=== PATIENT | female | born 1960 | race Caucasian/White ===

== ENCOUNTER → 2017-04-02 | Outpatient (CLI) | payer BC ==
[~2017-04-02] MED LIST: CELE20TA OR; HYDR25TA6 OR; IBUP600T OR; SEASTAB OR; VICO5TAB OR; VITAMIN B12; [UNRECOGNIZED DRUG - OTHER] OR
--- NOTE | 2017-04-02 16:11 | REP ---
Clinical: Lower back pain. Technique: AP, lateral, bilateral oblique and coned-down views of the lumbosacral spine. Comparison: 06/19/2015. Findings: Alignment and lordosis maintained. No acute fracture / compression injury or subluxation. Mild/early moderate multilevel degenerative changes include subtle anterior spurring, endplate sclerosis and hypertrophic facet changes similar to prior examination. No obvious spondylolysis or spondylolisthesis. Impression: 1. Mild to early moderate multilevel degenerative changes similar to prior examination. 2. No acute fracture / compression injury or subluxation. Signed by Antwon Edward MD 04/02/2017 04:02 P
== END ==
LOC: M RAD 15:27
PROVIDERS: ATTEND Nurse Practitioner Adult Health
DX: M54.5 Low back pain (principal)

== ENCOUNTER → 2017-04-10 | Outpatient (CLI) | payer BC ==
[2017-04-10 13:53] LABS: MEAN CORPUSCULAR HEMOGLOBIN 31.3 pg (27.0-33.0); MEAN CORPUSCULAR VOLUME 91.9 fl (80.0-96.0); WHITE BLOOD COUNT 4.8 K/mm3 (4.0-10.0)
[2017-04-10 14:14] LABS: VITAMIN B12 LEVEL 335 PG/ML (247-911)
[2017-04-10 14:22] LABS: ALBUMIN 3.6 GM/DL (3.2-5.2); ALBUMIN/GLOBULIN RATIO 1.16 (1.00-1.93); ALKALINE PHOSPHATASE 84 U/L (45-117); ALT/SGPT 22 U/L (12-78); ANION GAP 8 MEQ/L (8-16); AST/SGOT 14 U/L (15-37); BILIRUBIN,TOTAL 0.3 MG/DL (0.2-1.0); BLOOD UREA NITROGEN 10 MG/DL (7-18); CALCIUM LEVEL 8.6 MG/DL (8.5-10.1); CARBON DIOXIDE LEVEL 28 MEQ/L (21-32); CHLORIDE LEVEL 107 MEQ/L (98-107); CHOLESTEROL LEVEL 209 MG/DL (<200); CREATININE FOR GFR 0.69 MG/DL (0.55-1.02); GLOMERULAR FILTRATION RATE > 60.0 (>51); GLUCOSE, FASTING 86 MG/DL (70-105); POTASSIUM SERUM 4.9 MEQ/L (3.5-5.1); SODIUM LEVEL 143 MEQ/L (136-145); TOTAL PROTEIN 6.7 GM/DL (6.4-8.2); TRIGLYCERIDES LEVEL 75 MG/DL (<150)
== END ==
LOC: M SMT 07:59
PROVIDERS: ATTEND Nurse Practitioner Adult Health
DX: Z00.00 Encounter for general adult medical examination without abnormal findings (principal); E55.9 Vitamin D deficiency, unspecified

== ENCOUNTER → 2017-05-09 | Outpatient (CLI) | payer BC ==
[~2017-05-09] VITALS: Ht 152.4 cm; Wt 65.8 kg
[~2017-05-09] MED LIST changes: +HYDR12.55 PO; +NS 1,000 ML IV SCH; +OMEP40CA2 PO; +PROPOFOL 200 MG/20 ML VIAL As Ordered ONE; +VITA-176 PO; +VITATAB11 PO
--- NOTE | 2017-05-09 11:29 | ROOR ---
Patient Name: Karon Trimble Procedure Date: 05/09/2017 11:10 AM Date of : 1960 Age: 56 Room: [facility] Gender: Female Note Status: Finalized Procedure: Colonoscopy Indications: High risk colon cancer surveillance: Personal history of colonic polyps Providers: Lexx Jaeger Jr, MD Referring MD: Michael Fitzgerald MD Requesting Provider: Medicines: Propofol per Anesthesia Complications: No immediate complications. Procedure: Pre-Anesthesia Assessment: - Prior to the procedure, a History and Physical was performed, and patient medications and allergies were reviewed. The patient is competent. The risks and benefits of the procedure and the sedation options and risks were discussed with the patient. All questions were answered and informed consent was obtained. Patient identification and proposed procedure were verified by the physician and the nurse in the pre-procedure area and in the procedure room. Mental Status Examination: alert and oriented. Airway Examination: normal oropharyngeal airway and neck mobility. Respiratory Examination: clear to auscultation. CV Examination: normal. ASA Grade Assessment: II - A patient with mild systemic disease. After reviewing the risks and benefits, the patient was deemed in satisfactory condition to undergo the procedure. The anesthesia plan was to use moderate sedation / analgesia (conscious sedation). Immediately prior to administration of medications, the patient was re-assessed for adequacy to receive sedatives. The heart rate, respiratory rate, oxygen saturations, blood pressure, adequacy of pulmonary ventilation, and response to care were monitored throughout the procedure. The physical status of the patient was re-assessed after the procedure. The Colonoscope was introduced through the anus and advanced to the cecum, identified by appendiceal orifice and ileocecal valve. The patient tolerated the procedure well. The quality of the bowel preparation was adequate and good. Findings: The perianal and digital rectal examinations were normal. Pertinent negatives include normal sphincter tone, no palpable rectal lesions and no anal lesion or abnormality was detected. A diminutive polyp was found in the ascending colon. The polyp was removed with a hot snare. Resection and retrieval were complete. Impression: - One diminutive polyp in the ascending colon, removed with a hot snare. Resected and retrieved. Recommendation: - Repeat colonoscopy in 5 years for surveillance. Lexx Jaeger MD Lexx Jaeger Jr, MD 05/09/2017 11:29:23 AM This report has been signed electronically. Number of Addenda: 0 Note Initiated On: 05/09/2017 11:10 AM Estimated Blood Loss: Estimated blood loss: none.
[2017-05-09 11:45] VITALS: BP 153/79
== END | disposition home or self-care (01) ==
LOC: M OPP 10:12
PROVIDERS: ATTEND Surgery
DX: Z12.11 Encounter for screening for malignant neoplasm of colon (principal); D12.2 Benign neoplasm of ascending colon; Z86.010 Personal history of colon polyps; I10 Essential (primary) hypertension; R12 Heartburn; F32.9 Major depressive disorder, single episode, unspecified; F41.9 Anxiety disorder, unspecified; Z91.040 Latex allergy status; Z91.013 Allergy to seafood; Z79.899 Other long term (current) drug therapy

== ENCOUNTER → 2017-10-01 | Outpatient (CLI) | payer BC ==
[~2017-10-01] MED LIST changes: -NS 1,000 ML IV SCH; -PROPOFOL 200 MG/20 ML VIAL As Ordered ONE
--- NOTE | 2017-10-01 17:25 | REPMRS ---
Patient History The patient states she had a clinical breast exam in March 2017.Patient is postmenopausal. Family history of prostate cancer in paternal grandfather at age 7, breast cancer in maternal aunt at age 50, breast cancer in maternal cousin at age 30, and breast cancer in maternal cousin. Digital Mammo Screening Bilat: October 01, 2017 - Exam #: [id number] Bilateral CC and MLO view(s) were taken. Technologist: Nathaly Ahmadi, Technologist Prior study comparison: September 17, 2016, bilateral digital mammo screening bilat performed at [facility]. September 15, 2015, bilateral digital mammo screening bilat performed at [facility]. FINDINGS: There are scattered fibroglandular densities. There has been no change in the appearance of the mammogram from the prior studies. There is a mild amount of residual fibroglandular tissue which is fairly symmetric. There is no interval development of dominant mass, architectural distortion, or clustered microcalcification suggestive of malignancy. ASSESSMENT: BI-RADS/ACR category 1 mammogram. Negative. Recommendation Routine screening mammogram in 1 year (for women over age 40). This mammogram was interpreted with the aid of an FDA-approved computer-aided dectection system. Electronically Signed By: Rodrigo Barraza MD 10/01/17 [id number]
== END ==
LOC: M RAD 16:17
PROVIDERS: ATTEND Nurse Practitioner Adult Health
DX: Z12.31 Encounter for screening mammogram for malignant neoplasm of breast (principal)

== ENCOUNTER 2017-10-22 06:43 | Emergency (ER) | payer BC ==
[~2017-10-22] VITALS: Ht 152.4 cm; Wt 67.5 kg
[2017-10-22 06:43] VITALS: BP 143/98
[2017-10-22] MEDS ORDERED: CHERSYP3 PO (07:20)
[2017-10-22] MEDS ORDERED: CEFD1CAP8 PO (07:20)
== END 2017-10-22 07:27 | disposition home or self-care (01) ==
LOC: M ED 06:43
DX: J01.00 Acute maxillary sinusitis, unspecified (principal); R05 Cough; E53.8 Deficiency of other specified B group vitamins; Z79.899 Other long term (current) drug therapy; Z91.040 Latex allergy status; Z91.013 Allergy to seafood

== ENCOUNTER → 2017-10-28 | Outpatient (CLI) | payer BC ==
[~2017-10-28] MED LIST changes: +CEFD1CAP8 PO; +CHERSYP3 PO
--- NOTE | 2017-10-28 13:47 | REP ---
CHEST X-RAY: Two views. HISTORY: Acute bronchitis. Comparison chest x-ray November 05, 2009. FINDINGS: The lungs are symmetrically somewhat hyperinflated but clear. Pleural angles are sharp. Heart size is normal. Pulmonary vasculature is not increased. No significant bony abnormality is seen. IMPRESSION: Mild hyperinflation. Otherwise no acute disease. Signed by Bruce Allen MD 10/28/2017 03:03 P
== END ==
LOC: M SMT 12:09
PROVIDERS: ATTEND Nurse Practitioner Adult Health
DX: J20.9 Acute bronchitis, unspecified (principal)

== ENCOUNTER → 2018-04-03 | Outpatient (REF) | payer BC ==
[2018-04-03 11:58] LABS: HEMATOCRIT 43.4 % (36.0-47.0); HEMOGLOBIN 14.5 g/dl (12.0-15.5); MEAN CORPUSCULAR HEMOGLOBIN 30.5 pg (27.0-33.0); MEAN CORPUSCULAR HGB CONC 33.4 g/dl (32.0-36.5); MEAN CORPUSCULAR VOLUME 91.2 fl (80.0-96.0); PLATELET COUNT, AUTOMATED 287 10^3/uL (150-450); RED BLOOD COUNT 4.76 10^6/uL (4.00-5.40); RED CELL DISTRIBUTION WIDTH 13.3 % (11.5-14.5); WHITE BLOOD COUNT 5.1 10^3/uL (4.0-10.0)
[2018-04-03 12:21] LABS: TOTAL 25(OH) VITAMIN D 25.3 NG/ML (30.0-100.0); VITAMIN B12 LEVEL 286 PG/ML (247-911)
[2018-04-03 12:27] LABS: ALBUMIN 3.8 GM/DL (3.2-5.2); ALBUMIN/GLOBULIN RATIO 1.31 (1.00-1.93); ALKALINE PHOSPHATASE 83 U/L (45-117); ALT/SGPT 19 U/L (12-78); ANION GAP 5 MEQ/L (8-16); AST/SGOT 11 U/L (7-37); BILIRUBIN,TOTAL 0.5 MG/DL (0.2-1.0); BLOOD UREA NITROGEN 11 MG/DL (7-18); CALCIUM LEVEL 8.6 MG/DL (8.5-10.1); CARBON DIOXIDE LEVEL 27 MEQ/L (21-32); CHLORIDE LEVEL 111 MEQ/L (98-107); CHOLESTEROL LEVEL 215 MG/DL (<200); CHOLESTEROL RISK RATIO 2.986 (<5); CREATININE FOR GFR 0.67 MG/DL (0.55-1.30); GLOMERULAR FILTRATION RATE > 60.0 (>51); GLUCOSE, FASTING 86 MG/DL (70-100); HDL CHOLESTEROL 72 MG/DL (>40); LDL CHOLESTEROL 119.2 MG/DL (<100); NON-HDL-C 143 MG/DL; POTASSIUM SERUM 4.6 MEQ/L (3.5-5.1); SODIUM LEVEL 143 MEQ/L (136-145); TOTAL PROTEIN 6.7 GM/DL (6.4-8.2); TRIGLYCERIDES LEVEL 119 MG/DL (<150)
[2018-04-05 00:07] LABS: Lyme Disease IgG/IgM Antibodie <0.91 ISR (0.00-0.90); Lyme Disease IgM Ab Quantitati <0.80 index (0.00-0.79)
== END ==
LOC: M SFHCPLAZ 08:25
DX: Z00.00 Encounter for general adult medical examination without abnormal findings (principal); E55.9 Vitamin D deficiency, unspecified; E53.8 Deficiency of other specified B group vitamins; E78.00 Pure hypercholesterolemia, unspecified; R53.83 Other fatigue
CPT/HCPCS: 84443

== ENCOUNTER → 2018-10-22 | Outpatient (CLI) | payer BC | LOC: M RAD 15:23 | DX: Z12.31 Encounter for screening mammogram for malignant neoplasm of breast (principal) | CPT/HCPCS: 77067 ==

== ENCOUNTER → 2019-01-12 | Outpatient (REF) | payer BC | LOC: M SFHCLERA 11:12 | PROVIDERS: ATTEND Dermatology | DX: D23.10 Other benign neoplasm of skin of unspecified eyelid, including canthus (principal) ==

== ENCOUNTER → 2019-04-02 | Outpatient (REF) | payer BC ==
[2019-04-02 12:55] LABS: HEMATOCRIT 43.9 % (36.0-47.0); HEMOGLOBIN 14.6 g/dl (12.0-15.5); MEAN CORPUSCULAR HEMOGLOBIN 29.9 pg (27.0-33.0); MEAN CORPUSCULAR HGB CONC 33.3 g/dl (32.0-36.5); MEAN CORPUSCULAR VOLUME 89.8 fl (80.0-96.0); PLATELET COUNT, AUTOMATED 337 10^3/uL (150-450); RED BLOOD COUNT 4.89 10^6/uL (4.00-5.40); WHITE BLOOD COUNT 5.3 10^3/uL (4.0-10.0)
[2019-04-02 13:29] LABS: ALBUMIN 3.8 GM/DL (3.2-5.2); ALT/SGPT 20 U/L (12-78); BILIRUBIN,TOTAL 0.4 MG/DL (0.2-1.0); BLOOD UREA NITROGEN 10 MG/DL (7-18); CALCIUM LEVEL 8.6 MG/DL (8.5-10.1); CARBON DIOXIDE LEVEL 26 MEQ/L (21-32); CHLORIDE LEVEL 104 MEQ/L (98-107); CHOLESTEROL LEVEL 229 MG/DL (<200); CHOLESTEROL RISK RATIO 3.225 (<5); CREATININE FOR GFR 0.68 MG/DL (0.55-1.30); GLOMERULAR FILTRATION RATE > 60.0 (>51); GLUCOSE, FASTING 91 MG/DL (70-100); HDL CHOLESTEROL 71 MG/DL (>40); LDL CHOLESTEROL 130 MG/DL (<100); NON-HDL-C 158 MG/DL; POTASSIUM SERUM 4.4 MEQ/L (3.5-5.1); SODIUM LEVEL 138 MEQ/L (136-145); TOTAL 25(OH) VITAMIN D 26.9 NG/ML (30.0-100.0); TOTAL PROTEIN 7.1 GM/DL (6.4-8.2); TRIGLYCERIDES LEVEL 139 MG/DL (<150)
== END ==
LOC: M SFHCPLAZ 08:36
PROVIDERS: ATTEND Nurse Practitioner Adult Health
DX: Z00.00 Encounter for general adult medical examination without abnormal findings (principal); E55.9 Vitamin D deficiency, unspecified; E78.00 Pure hypercholesterolemia, unspecified

== ENCOUNTER 2019-08-16 16:57 | Emergency (ER) | payer BC ==
[~2019-08-16] VITALS: Ht 152.4 cm; Wt 69.8 kg
[2019-08-16 16:57] VITALS: BP 146/93
[2019-08-16] MEDS ORDERED: MORPHINE 4 MG/ML 1ML VIAL/SYRINGE (J2270) IV ONE (18:15)
[2019-08-16] MEDS ORDERED: NS 1,000 ML IV ONE (18:15)
[2019-08-16 18:47] LABS: BASO % 0.4 % (0.0-1.0); EOS # 0.1 10^3/uL (0.0-0.5); EOS % 1.4 % (0.0-3.0); HEMATOCRIT 38.2 % (36.0-47.0); HEMOGLOBIN 13.1 g/dl (12.0-15.5); LYMPH # 1.4 10^3/uL (1.5-5.0); LYMPH % 15.1 % (24.0-44.0); MEAN CORPUSCULAR HEMOGLOBIN 31.1 pg (27.0-33.0); MEAN CORPUSCULAR HGB CONC 34.3 g/dl (32.0-36.5); MEAN CORPUSCULAR VOLUME 90.7 fl (80.0-96.0); MONO % 10.7 % (0.0-5.0); NEUTROPHILS # 6.5 10^3/uL (1.5-8.5); PLATELET COUNT, AUTOMATED 275 10^3/uL (150-450); RED BLOOD COUNT 4.21 10^6/uL (4.00-5.40); WHITE BLOOD COUNT 9.1 10^3/uL (4.0-10.0)
[2019-08-16] MEDS ORDERED: ISOVUE-370 76% 100ML VIAL (Q9967) As Ordered ONE (18:49)
[2019-08-16] MEDS ORDERED: ONDANSETRON 4MG/2ML VIAL (J2405) IV ONE (19:15)
[2019-08-16 19:37] LABS: APPEARANCE, URINE CLEAR (CLEAR); BACTERIA, URINE AUTO 2+ (NEGATIVE); BILIRUBIN, URINE AUTO NEGATIVE (NEGATIVE); BLOOD, URINE BLOOD 2+ (NEGATIVE); COLOR, URINE YELLOW (YELLOW); GLUCOSE, URINE (UA) AUTO NEGATIVE (NEGATIVE); KETONE, URINE AUTO 1+ mg/dL (NEGATIVE); LEUKOCYTE ESTERASE, URINE AUTO NEGATIVE (NEGATIVE); NITRITE, URINE AUTO NEGATIVE (NEGATIVE); PROTEIN, URINE AUTO NEGATIVE (NEGATIVE); RBC, URINE AUTO 9 /HPF (0-3); SPECIFIC GRAVITY URINE AUTO 1.009 (1.002-1.035); SQUAMOUS EPITHELIAL CELL UR AU 0 /HPF (0-6); WBC, URINE AUTO 1 /HPF (0-3)
--- NOTE | 2019-08-16 20:04 | REPVR ---
PROCEDURE INFORMATION: Exam: CT Chest With Contrast Exam date and time: 08/16/2019 6:52 PM Clinical history: 58 years old, female; Injury or trauma; Fall; Initial encounter; Blunt trauma (contusions or hematomas); Additional info: Right chest trauma TECHNIQUE: Imaging protocol: Computed tomography of the chest with intravenous contrast. Radiation optimization: All CT scans at this facility use at least one of these dose optimization techniques: automated exposure control; mA and/or kV adjustment per patient size (includes targeted exams where dose is matched to clinical indication); or iterative reconstruction. Contrast material: ISOVUE 370; Contrast volume: 100 ml; Contrast route: IV; COMPARISON: CR Ribs uni W-PA CHEST ONLY RIGHT 08/16/2019 5:24 PM FINDINGS: Lungs: Mild bibasilar fibro-atelectatic change, greatest in the right lower lobe. Pleural space: Minimal right pleural effusion with a Hounsfield measurement of 20. Heart: Unremarkable. No cardiomegaly. No pericardial effusion. Mediastinum: Induration of anterior mediastinal fat which is nonspecific in a patient of this age. Pulmonary arteries: The main pulmonary artery measures 24 mm. Aorta: The ascending thoracic aorta measures 29 mm. Lymph nodes: Unremarkable. No enlarged lymph nodes. Liver: The liver attenuation is 97 Hounsfield units and the spleen is 136 Hounsfield units. Adrenals: Right adrenal mass measuring 4.2 x 2.7 x 3.3 cm with a Hounsfield measurement of 47 with slightly indistinct margination. Bones/joints: Fractures of the right 8th-10th ribs posteriorly. Soft tissues: Slight subcutaneous edema over the posterior right back over the area of rib fractures. IMPRESSION: 1. Minimal right pleural effusion. 2. Mild bibasilar fibro-atelectatic change, greatest in the right lower lobe. 3. Fractures of the right 8th-10th ribs posteriorly. No pneumothorax. There is slight overlying subcutaneous edema consistent with point of impact. 4. Induration of anterior mediastinal fat which is nonspecific in a patient of this age. 5. Right adrenal mass with slightly indistinct margination measuring 4.2 x 2.7 x 3.3 cm which is new since 12/08/2012. If patient has no cancer history, consider follow-up adrenal CT or resection. If patient has a history of cancer, consider biopsy or PET/CT for patients with cancer history. (Flory Holden, ACR White Paper, 2017). Electronically signed by: Tez Flores On 08/16/2019 20:04:10 PM
--- NOTE | 2019-08-16 20:13 | REPVR ---
PROCEDURE INFORMATION: Exam: CT Abdomen and pelvis with contrast Exam date and time: 08/16/2019 6:52 PM Clinical history: 58 years old, female; Injury or trauma; Fall; Initial encounter; Blunt; Ruq; Additional info: Right chest trauma TECHNIQUE: Imaging protocol: Computed tomography of the abdomen and pelvis with intravenous contrast. Radiation optimization: All CT scans at this facility use at least one of these dose optimization techniques: automated exposure control; mA and/or kV adjustment per patient size (includes targeted exams where dose is matched to clinical indication); or iterative reconstruction. Contrast material: ISOVUE 370; Contrast volume: 100 ml; Contrast route: IV; COMPARISON: CT ABD PELVIS W/O CONTRAST 12/08/2012 8:31 AM FINDINGS: Lungs: Mild bibasilar fibro-atelectatic change, greatest in the right lower lobe. Pleural space: Small right pleural effusion. Liver: The liver attenuation is 93 Hounsfield units and the spleen is 138 Hounsfield units. The liver and spleen are intact. No perihepatic or perisplenic fluid collections are identified. Gallbladder and bile ducts: Normal. No calcified stones. No ductal dilation. Pancreas: Normal. No ductal dilation. Spleen: Normal. No splenomegaly. Adrenals: Right adrenal mass measuring 4.1 x 2.8 x 3.6 cm with slightly indistinct margination and a Hounsfield measurement of 46. Kidneys and ureters: Normal. No hydronephrosis. Stomach and bowel: Unremarkable. No obstruction. No mucosal thickening. Appendix: A normal small appendix is seen. Intraperitoneal space: Unremarkable. No free air. No significant fluid collection. Vasculature: Unremarkable. No abdominal aortic aneurysm. Lymph nodes: Unremarkable. No enlarged lymph nodes. Bladder: There is mild urinary bladder wall thickening with slight surrounding induration. Reproductive: Status post hysterectomy. Bones/joints: Fractures of the right 8th-10th ribs posteriorly. Mild facet arthropathy of the lower lumbar spine. Soft tissues: Slight subcutaneous edema in the lower right back overlying the rib fractures. Minimal fat filled right periumbilical hernia. IMPRESSION: 1. Fatty infiltration of the liver. 2. Right adrenal mass with slightly indistinct margination which is new since 12/08/2012. If patient has no cancer history, consider follow-up adrenal CT or resection. If patient has a history of cancer, consider biopsy or PET/CT for patients with cancer history. (Flory Holden, ACR White Paper, 2017). 3. Small right pleural effusion with mild bibasilar fibro-atelectatic change, greatest in the right lower lobe. 4. Fractures of the right 8th-10th ribs posteriorly. There is slight overlying subcutaneous edema. 5. Mild urinary bladder wall thickening which is less pronounced since the prior study. There is slight surrounding induration and cystitis is not excluded. 6. Status post hysterectomy. Electronically signed by: Tez Flores On 08/16/2019 20:13:11 PM
[2019-08-16 20:29] LABS: ALBUMIN 3.2 GM/DL (3.2-5.2); ALT/SGPT 70 U/L (12-78); BILIRUBIN,DIRECT < 0.1 MG/DL (0.0-0.2); BILIRUBIN,TOTAL 0.9 MG/DL (0.2-1.0); TOTAL PROTEIN 6.8 GM/DL (6.4-8.2)
[2019-08-16] MEDS ORDERED: MIRA3350 PO (20:42)
[2019-08-16] MEDS ORDERED: PERC5TAB12 PO (20:42)
[2019-08-16] MEDS ORDERED: OXYCODONE/APAP 5MG/325MG(BULK FOR ED) 1 TABLET PO ONE (20:45)
--- NOTE | 2019-08-17 08:13 | REP ---
RIGHT SHOULDER, COMPLETE: 08/16/2019. Clinical history: Trauma. Findings: Three views show AC joint without widening or elevation of the clavicle in relationship to the acromion. Clavicle, scapula, ribs and humeral head are without evidence of fracture. There is no subluxation or dislocation of the humeral head on the glenoid. No abnormal soft-tissue calcification. Impression: 1. Negative right shoulder series for fracture, subluxation or other acute finding. Electronically Signed by Devang Abebe MD 08/17/2019 10:04 A
--- NOTE | 2019-08-17 08:15 | REP ---
PA CHEST WITH RIGHT RIBS: 08/16/2019. Comparison: CXR 10/28/2017, PA chest with ribs 01/01/2009. Findings: PA chest. Some bibasilar atelectatic change noted. Small right effusion present. Mid and upper lung zones are clear. No left effusion. Heart is not enlarged. Aorta and airway intact and normal for age. No abnormal widening of the mediastinum. No pneumothorax or pneumomediastinum. Right ribs, clavicle, scapula, humerus were grossly intact. Gentle dextroconvex curve of the thoracic spine again seen. Pedicles, spinous and transverse processes intact. Posterior ribs intact. Four views of the ribs show no focal lesion, rib fracture, pleural thickening or adjacent pneumothorax. Impression: 1. Some basilar atelectasis or infiltrates with right pleural effusion but not on the left and with no pleural thickening or pneumothorax. 2. No visible or displaced rib fracture, focal rib lesion or other acute finding. Electronically Signed by Devang Abebe MD 08/17/2019 10:04 A
== END 2019-08-16 21:12 | disposition home or self-care (01) ==
LOC: M ED 16:57
DX: S22.41XA Multiple fractures of ribs, right side, initial encounter for closed fracture (principal); W19.XXXA Unspecified fall, initial encounter; Y92.89 Other specified places as the place of occurrence of the external cause; Y93.89 Activity, other specified; Y99.9 Unspecified external cause status; E27.9 Disorder of adrenal gland, unspecified; I10 Essential (primary) hypertension; K76.0 Fatty (change of) liver, not elsewhere classified; J90 Pleural effusion, not elsewhere classified; Z79.899 Other long term (current) drug therapy; Z88.8 Allergy status to other drugs, medicaments and biological substances; Z91.040 Latex allergy status; Z91.013 Allergy to seafood
CPT/HCPCS: 71101; 71260; 73030; 74177; 80047; 80076; 81001; 85025; 86850; 86900; 86901; 96361; 96374; 96375; 99284; J2270; J2405; Q9967

== ENCOUNTER → 2019-08-24 | Outpatient (REF) | payer BC ==
[~2019-08-24] MED LIST changes: +MIRA3350 PO; -OMEP40CA2 PO; +OMEP40CA97 PO; +PERC5TAB12 PO
== END ==
LOC: M SFHCPLAZ 15:36
PROVIDERS: ATTEND Nurse Practitioner Family
DX: R31.21 Asymptomatic microscopic hematuria (principal)

== ENCOUNTER → 2019-09-04 | Outpatient (CLI) | payer BC ==
[2019-09-08 10:10] LABS: ALDOSTERONE 2.7 ng/dL (0.0-30.0); DOPAMINE PLASMA 36 pg/mL (0-48); EPINEPHRINE PLASMA <15 pg/mL (0-62); METANEPHRINE PLASMA <10 pg/mL (0-62); NOREPINEPHRINE PLASMA 219 pg/mL (0-874); NORMETANEPHRINE PLASMA 64 pg/mL (0-145)
== END ==
LOC: M LAB 12:52
PROVIDERS: ATTEND Surgery
DX: E27.8 Other specified disorders of adrenal gland (principal)

== ENCOUNTER → 2019-09-13 | Outpatient (REF) | payer BC ==
[2019-09-21 14:19] LABS: DOPAMINE 150 ug/24 hr (0-510); DOPAMINE TOTAL URINE 66 ug/L (Undefined); EPINEPHRINE < 2 ug/24 hr (0-20); EPINEPHRINE TOTAL URINE <1 ug/L (Undefined); METANEPHRINE TOTAL URINE <10 ug/L (Undefined); METANEPHRINE URINE < 23 ug/24 hr (45-290); NOREPINEPHRINE 20 ug/24 hr (0-135); NOREPINEPHRINE TOTAL URINE 9 ug/L (Undefined); NORMETANEPHRINE TOTAL URINE 60 ug/L (Undefined); NORMETANEPHRINE URINE 137 ug/24 hr (82-500); VANILLYLMANDELIC ACID,URINE 0.7 mg/L (Undefined); VANILLYLMANDELIC ACID,URINE 24 1.6 mg/24 hr (0.0-7.5)
== END ==
LOC: M LAB REF 10:55
PROVIDERS: ATTEND Surgery
DX: E27.8 Other specified disorders of adrenal gland (principal)

== ENCOUNTER → 2019-11-20 | Outpatient (CLI) | payer BC ==
[~2019-11-20] MED LIST changes: +GASTROGRAFIN SOLUTION 30ML (Q9963) As Ordered ONE; +ISOVUE-370 76% 100ML VIAL (Q9967) As Ordered ONE
--- NOTE | 2019-11-20 11:26 | REP ---
Clinical: Evaluate right adrenal mass. Technique: Axial contrast enhanced images of the abdomen and pelvis using 100 ml Isovue 370 intravenous contrast material and the oral contrast as per protocol with coronal and sagittal re-formations. 15-minute delayed images of the abdomen obtained. Findings: The previously described large right adrenal mass has completely resolved and the right adrenal gland now appears normal and measures 1.6 cm maximal diameter. The previous finding most likely reflected adrenal trauma and has completely resolved. Liver, spleen, pancreas, gallbladder, bilateral adrenal glands, and kidneys are normal. The enteric system is without obstruction or acute inflammatory process. Pelvis demonstrates normal bladder and evidence for prior hysterectomy. No ascites. No free air. No adenopathy. Musculoskeletal structures appear intact. Evidence for nonacute, healing right rib fractures. Impression: 1. Previously identified large right adrenal lesion was most compatible with traumatic hematoma and has completely resolved. There is no right adrenal mass. 2. No further acute abdominopelvic pathology appreciated. 3. Nonacute healing right rib fractures. Electronically Signed by Antwon Edward MD 11/20/2019 11:17 A
== END ==
LOC: M RAD 08:52
PROVIDERS: ATTEND Surgery
DX: E27.8 Other specified disorders of adrenal gland (principal)
CPT/HCPCS: 74177; Q9963; Q9967

== ENCOUNTER → 2019-12-01 | Outpatient (CLI) | payer BC ==
[~2019-12-01] MED LIST changes: -GASTROGRAFIN SOLUTION 30ML (Q9963) As Ordered ONE; -ISOVUE-370 76% 100ML VIAL (Q9967) As Ordered ONE
--- NOTE | 2019-12-01 09:29 | REPMRS ---
Patient History The patient states she had a clinical breast exam in February 2019. Family history of prostate cancer at age 7 in paternal grandfather, breast cancer at age 50 in maternal aunt, breast cancer at age 30 in maternal cousin, breast cancer in maternal cousin. Digital Mammo Screening Bilat: December 01, 2019 - Exam #: [id number] Bilateral CC and MLO view(s) were taken. Technologist: Augusta Lion, Technologist Prior study comparison: October 22, 2018, bilateral digital mammo screening bilat performed at [facility]. October 01, 2017, bilateral digital mammo screening bilat performed at [facility]. September 17, 2016, bilateral digital mammo screening bilat performed at [facility]. FINDINGS: There are scattered fibroglandular densities. There has been no change in the appearance of the mammogram from the prior studies. There is a mild amount of scattered fibroglandular density which is fairly symmetric. There is no interval development of dominant mass, architectural distortion, or grouped microcalcification suggestive of malignancy. 3-D tomosynthesis shows no additional findings. Assessment: BI-RADS/ACR category 1 mammogram. Negative Mammogram. Recommendation Routine screening mammogram of both breasts in 1 year (for women over age 40). This patient's Lifetime Breast Cancer Risk is estimated at 10.8 %. This mammogram was interpreted with the aid of an FDA-approved computer-aided dectection system. Electronically Signed By: Sam Allen MD 12/01/19 0928
== END ==
LOC: M RAD 07:09
PROVIDERS: ATTEND Nurse Practitioner Adult Health
DX: Z12.31 Encounter for screening mammogram for malignant neoplasm of breast (principal)

== ENCOUNTER → 2020-01-13 | Outpatient (REF) | payer BC | LOC: M LAB REF 11:24 | PROVIDERS: ATTEND Dermatology | DX: D49.2 Neoplasm of unspecified behavior of bone, soft tissue, and skin (principal) ==

== ENCOUNTER → 2020-05-24 | Outpatient (REF) | payer BC | LOC: M WUC 16:02 | PROVIDERS: ATTEND Nurse Practitioner Family | DX: N39.0 Urinary tract infection, site not specified (principal) ==

== ENCOUNTER → 2020-07-12 | Outpatient (REF) | payer BC | LOC: M WUC 13:35 | PROVIDERS: ATTEND Nurse Practitioner Family | DX: N39.0 Urinary tract infection, site not specified (principal) ==

== ENCOUNTER → 2020-07-14 | Outpatient (REF) | payer BC | LOC: M LAB REF 10:00 | PROVIDERS: ATTEND Dermatology | DX: D23.5 Other benign neoplasm of skin of trunk (principal); D23.71 Other benign neoplasm of skin of right lower limb, including hip; L57.0 Actinic keratosis ==

== ENCOUNTER → 2020-08-16 | Outpatient (REF) | payer BC | LOC: M LAB REF 18:31 | PROVIDERS: ATTEND Dermatology | DX: R23.4 Changes in skin texture (principal) ==

== ENCOUNTER → 2020-10-09 | Outpatient (REF) | payer BC | LOC: M WUC 09:00 | PROVIDERS: ATTEND Nurse Practitioner Family | DX: R30.0 Dysuria (principal) ==

== ENCOUNTER → 2020-12-02 | Outpatient (CLI) | payer BC ==
[~2020-12-02] MED LIST changes: +ASPI81CH33 PO; +CELE10TA PO; +DERM1TAB2 PO; +LISI10TA22 PO
--- NOTE | 2020-12-02 08:51 | REPMRS ---
Patient History The patient states she had a clinical breast exam in July 2020.Patient is postmenopausal. Family history of prostate cancer at age 7 in paternal grandfather, breast cancer at age 50 in maternal aunt, breast cancer at age 30 in maternal cousin, breast cancer in maternal cousin. 3D TOMOSYNTHESIS WAS PERFORMED. [facility] lifetime risk for breast cancer is 10.5%. Volpara breast density b. Digital Woman Screen Mammo: December 02, 2020 - Exam #: [id number] Bilateral CC and MLO view(s) were taken. Technologist: Nathaly Ahmadi, Technologist Prior study comparison: December 01, 2019, bilateral digital mammo screening bilat, performed at [facility]. October 22, 2018, bilateral digital mammo screening bilat, performed at [facility]. FINDINGS: There are scattered fibroglandular densities. There has been no change in the appearance of the mammogram from the prior studies. There is a mild amount of residual fibroglandular tissue which is fairly symmetric. There is no interval development of dominant mass, architectural distortion, or clustered microcalcification suggestive of malignancy. Assessment: BI-RADS/ACR category 1 mammogram. Negative Mammogram. Recommendation Routine screening mammogram in 1 year (for women over age 40). This mammogram was interpreted with the aid of an FDA-approved computer-aided dectection system. Electronically Signed By: Rodrigo Barraza MD 12/02/20 0851
== END ==
LOC: M WHC 06:42
PROVIDERS: ATTEND Nurse Practitioner Adult Health
DX: Z12.31 Encounter for screening mammogram for malignant neoplasm of breast (principal)

== ENCOUNTER → 2020-12-16 | Outpatient (REF) | payer BC ==
[~2020-12-16] MED LIST changes: -ASPI81CH33 PO; -CELE10TA PO; -DERM1TAB2 PO; -LISI10TA22 PO
== END ==
LOC: M WUC 09:32
PROVIDERS: ATTEND Physician Assistant
DX: R30.0 Dysuria (principal)

== ENCOUNTER 2020-12-25 06:37 | Emergency (ER) | payer BC ==
[~2020-12-25] VITALS: Ht 152.4 cm; Wt 69.2 kg
[2020-12-25] MEDS ORDERED: CELE10TA PO (06:45)
[2020-12-25] MEDS ORDERED: LISI10TA22 PO (06:45)
[2020-12-25] MEDS ORDERED: DERM1TAB2 PO (06:45)
[2020-12-25] MEDS ORDERED: ACETAMINOPHEN 500 MG TAB PO ONE (07:15)
[2020-12-25] MEDS ORDERED: KETOROLAC 30 MG/ML 1ML VIAL IV ONE (07:15)
[2020-12-25] MEDS ORDERED: diphenhydrAMINE 50MG/ML VIAL (J1200) IV ONE (07:15)
[2020-12-25] MEDS ORDERED: NS 1,000 ML IV ONE (07:15)
[2020-12-25 07:50] LABS: BASO % 0.9 % (0.0-1.0); EOS # 0.1 10^3/uL (0.0-0.5); EOS % 2.1 % (0.0-3.0); HEMATOCRIT 40.8 % (36.0-47.0); HEMOGLOBIN 13.5 g/dl (12.0-15.5); LYMPH # 1.3 10^3/uL (1.5-5.0); LYMPH % 28.2 % (24.0-44.0); MEAN CORPUSCULAR HEMOGLOBIN 29.7 pg (27.0-33.0); MEAN CORPUSCULAR HGB CONC 33.1 g/dl (32.0-36.5); MEAN CORPUSCULAR VOLUME 89.9 fl (80.0-96.0); MONO # 0.4 10^3/uL (0.0-0.8); MONO % 9.4 % (0.0-5.0); NEUTROPHILS # 2.8 10^3/uL (1.5-8.5); NEUTROPHILS % 58.8 % (36.0-66.0); PLATELET COUNT, AUTOMATED 314 10^3/uL (150-450); RED BLOOD COUNT 4.54 10^6/uL (4.00-5.40); WHITE BLOOD COUNT 4.7 10^3/uL (4.0-10.0)
[2020-12-25] MEDS ORDERED: METOCLOPRAMIDE INJ 10MG/2ML VIAL (J2765 PER 1) IV ONE (08:00)
--- NOTE | 2020-12-25 08:09 | REPVR ---
PROCEDURE INFORMATION: Exam: CT Head Without Contrast Exam date and time: 12/25/2020 7:56 AM Age: 60 years old Clinical indication: Pain; Other: R sided headache TECHNIQUE: Imaging protocol: Computed tomography of the head without contrast. Radiation optimization: All CT scans at this facility use at least one of these dose optimization techniques: automated exposure control; mA and/or kV adjustment per patient size (includes targeted exams where dose is matched to clinical indication); or iterative reconstruction. COMPARISON: No relevant prior studies available. 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 There are occasional foci of low density in the vergara radiata and centrum semiovale, likely reflecting areas of gliosis, demyelination, and/or ischemic change. Cerebral ventricles: No ventriculomegaly. Bones/joints: Unremarkable. No acute fracture. Paranasal sinuses: Visualized sinuses are unremarkable. No fluid levels. Mastoid air cells: Visualized mastoid air cells are well aerated. Soft tissues: Unremarkable. IMPRESSION: 1. 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 2. There are occasional foci of low density in the vergara radiata and centrum semiovale, likely reflecting areas of gliosis, demyelination, and/or ischemic change. If an acute infarct is a clinical concern, follow-up MRI with diffusion imaging is recommended. Electronically signed by: Burke Tuttle On 12/25/2020 08:09:46 AM
[2020-12-25 08:13] LABS: ALBUMIN 3.5 GM/DL (3.2-5.2); ALT/SGPT 20 U/L (12-78); BILIRUBIN,DIRECT < 0.1 MG/DL (0.0-0.2); BILIRUBIN,TOTAL 0.3 MG/DL (0.2-1.0); C REACTIVE PROTEIN QUANTITATIV 0.62 MG/DL (0.00-0.30); LIPASE 153 U/L (73-393); TOTAL PROTEIN 6.5 GM/DL (6.4-8.2)
[2020-12-25] MEDS ORDERED: dexameTHASONE 4 MG/ML 1ML VIAL (J1100 PER 1MG) IV ONE (08:45)
[2020-12-25 09:11] LABS: ERYTHROCYTE SEDIMENTATION RATE 6 mm/hr (0-30)
--- NOTE | 2020-12-25 10:59 | REPVR ---
PROCEDURE INFORMATION: Exam: MR Head Without Contrast Exam date and time: 12/25/2020 10:27 AM Age: 60 years old Clinical indication: Pain; Tension; Patient HX: R sided headache TECHNIQUE: Imaging protocol: MR of the head without contrast. COMPARISON: CT Head without contrast 12/25/2020 7:56 AM FINDINGS: Brain: Examination of the brain demonstrates normal morphology and signal intensity.No acute infarction, masses, midline shift or acute hemorrhage is seen. No acute intracranial abnormality is identified.There is no abnormal diffusion weighted signal intensity to suggest an acute ischemic event.The cortical wahl / white matter interfaces are preserved throughout the brain.Intracranial flow voids are well maintained. There is a prominent perivascular CSF space in the right basal ganglia. Cerebral ventricles: The ventricular system is not dilated and is appropriate for the patient's age. Bones/joints: Unremarkable. Paranasal sinuses: Normal as visualized. No acute sinusitis. Mastoid air cells: Normal as visualized. No mastoid effusion. Orbital cavity: Unremarkable. Soft tissues: Unremarkable. IMPRESSION: No acute infarction, masses or hemorrhage is seen. No acute intracranial abnormality is identified.There has been no adverse interval change since the previous study. Electronically signed by: Thony Conner On 12/25/2020 10:59:38 AM
--- NOTE | 2020-12-25 11:05 | REPVR ---
PROCEDURE INFORMATION: Exam: MR Angiogram Head Without Contrast, Arteries Exam date and time: 12/25/2020 10:27 AM Age: 60 years old Clinical indication: Pain; Patient HX: R sided headache TECHNIQUE: Imaging protocol: MR angiogram head without contrast. Exam focused on the arteries. 3D rendering (Not supervised by radiologist): MIP and/or 3D reconstructed images were created by the technologist. COMPARISON: CT Head without contrast 12/25/2020 7:56 AM FINDINGS: ANTERIOR CIRCULATION: Right internal carotid artery: Intracranial segment is patent with no significant stenosis. No aneurysm. Right middle cerebral artery: No occlusion or significant stenosis. No aneurysm. Right anterior cerebral artery: No occlusion or significant stenosis. No aneurysm. Left internal carotid artery: Intracranial segment is patent with no significant stenosis. No aneurysm. Left middle cerebral artery: No occlusion or significant stenosis. No aneurysm. Left anterior cerebral artery: No occlusion or significant stenosis. No aneurysm. POSTERIOR CIRCULATION: Right vertebral artery: No occlusion or significant stenosis. No aneurysm. Hypoplastic Left vertebral artery: No occlusion or significant stenosis. No aneurysm. 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 Right posterior cerebral artery: No occlusion or significant stenosis. No aneurysm. origin. Left posterior cerebral artery: No occlusion or significant stenosis. No aneurysm. origin. IMPRESSION: 1. 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 2. 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 3. There is origin of bilateral posterior cerebral arteries. Electronically signed by: Thony Conner On 12/25/2020 11:05:15 AM
[2020-12-25] MEDS ORDERED: ISOVUE-370 76% 100ML VIAL As Ordered ONE (12:10)
--- NOTE | 2020-12-25 13:12 | REP ---
INDICATION: r/o stroke vs vascular abnormality. COMPARISON: CT angiogram 09/17/2008. TECHNIQUE: CT contrast dose: 100 ml of intravenous Isovue 370. CT technique: Helical scanning is acquired. 2 mm high resolution axial images are reformatted. In addition maximal intensity projection, and complex plane multiplanar re-formation images are generated. Surface rendered color 3-D images are generated. FINDINGS: Brachiocephalic artery is widely patent. Right common carotid and internal carotid arteries are widely patent without significant stenosis. Left common and internal carotid arteries are widely patent with no significant stenosis. Vertebral arteries are visualized entering the foramen magnum. However, just superior to the foramen magnum they both extend laterally and do not form the basilar artery, as on the prior study, compatible with a congenital variant. There are degenerative changes of the spine. IMPRESSION: No evidence of occlusion or significant stenosis of the common carotid or internal carotid arteries bilaterally. Vertebral arteries terminate just above the foramen magnum, as seen on prior CT angiogram 09/17/2008, consistent with a congenital variant. <Electronically signed by Rodrigo Barraza > 12/25/20 1553
--- NOTE | 2020-12-25 13:20 | REP ---
INDICATION: r/o stroke vs vascular abnormality. COMPARISON: 09/17/2008. TECHNIQUE: CT contrast dose: 100 ml of intravenous Isovue 370. CT technique: Helical scanning is acquired. 2 mm axial images are reformatted. Maximal intensity projection and multiplanar re-formation images are generated along with 3-D surface rendered color imaging which is viewed rotational. FINDINGS: The intracranial carotid arteries are widely patent bilaterally. The anterior and middle cerebral arteries are symmetrical bilaterally and appear patent without significant stenosis. 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 Small serpiginous arterial vessels are again seen along the ventral amy and medulla, appearing similar to the prior exam. These appear to contribute supply to the posterior cerebral arteries bilaterally. There is persistent circulation bilaterally with both posterior cerebral arteries originating from the pre catheters internal carotid arteries bilaterally. No definite aneurysm or AVM. 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 No evidence of occlusion or significant stenosis of the intracranial carotid arteries or major cerebral arteries. <Electronically signed by Rodrigo Barraza > 12/25/20 [id number]
[2020-12-25 13:25] VITALS: BP 122/67
[2020-12-25] MEDS ORDERED: ASPI81CH33 PO (13:49)
--- NOTE | 2020-12-25 17:04 | ECGEPIP ---
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
--- NOTE | 2020-12-25 17:37 | ED PDOC ---
Post-Departure Follow-Up [facility]OR[facility] AND DR LOCKWOOD FAXED CT HEAD, CTA HEAD CTA NECK, MRA BRAIN FOR FU Nurys Patel MD Dec 25, 2020 17:36
[2020-12-26 10:33] LABS: VITAMIN B12 LEVEL 275 PG/ML (247-911)
[2020-12-27 17:07] LABS: Lyme Disease IgG/IgM Antibodie <0.91 ISR (0.00-0.90); Lyme Disease IgM Ab Quantitati <0.80 index (0.00-0.79)
== END 2020-12-25 14:16 | disposition home or self-care (01) ==
LOC: M ED 06:37
DX: G43.909 Migraine, unspecified, not intractable, without status migrainosus (principal); R93.0 Abnormal findings on diagnostic imaging of skull and head, not elsewhere classified; I10 Essential (primary) hypertension; F33.9 Major depressive disorder, recurrent, unspecified; E53.8 Deficiency of other specified B group vitamins; K21.9 Gastro-esophageal reflux disease without esophagitis; Z79.899 Other long term (current) drug therapy; Z79.82 Long term (current) use of aspirin; Z91.018 Allergy to other foods; Z91.040 Latex allergy status; Z88.8 Allergy status to other drugs, medicaments and biological substances
CPT/HCPCS: 70450; 70496; 70498; 70544; 70551; 80047; 80076; 81001; 82607; 83690; 85025; 85652; 86140; 86617; 93005; 96361; 96374; 96375; 99284; J1100; J1200; J1885; J2765; Q9967

== ENCOUNTER → 2021-01-05 | Outpatient (CLI) | payer BC ==
[~2021-01-05] MED LIST changes: +ASPI81CH33 PO; +CELE10TA PO; +DERM1TAB2 PO; +LISI10TA22 PO
[2021-01-05 08:23] LABS: ALBUMIN 3.6 GM/DL (3.2-5.2); ALT/SGPT 23 U/L (12-78); BILIRUBIN,TOTAL 0.3 MG/DL (0.2-1.0); BLOOD UREA NITROGEN 10 MG/DL (7-18); CALCIUM LEVEL 9.2 MG/DL (8.5-10.1); CARBON DIOXIDE LEVEL 27 MEQ/L (21-32); CHLORIDE LEVEL 102 MEQ/L (98-107); CHOLESTEROL LEVEL 223 MG/DL (<200); CHOLESTEROL RISK RATIO 3.378 (<5); CREATININE FOR GFR 0.72 MG/DL (0.55-1.30); GLOMERULAR FILTRATION RATE > 60.0 (>51); GLUCOSE, FASTING 91 MG/DL (70-100); HDL CHOLESTEROL 66 MG/DL (>40); LDL CHOLESTEROL 131 MG/DL (<100); NON-HDL-C 157 MG/DL; POTASSIUM SERUM 4.4 MEQ/L (3.5-5.1); SODIUM LEVEL 136 MEQ/L (136-145); THYROID STIMULATING HORMONE 0.975 uIU/ML (0.358-3.740); TOTAL PROTEIN 6.6 GM/DL (6.4-8.2); TRIGLYCERIDES LEVEL 131 MG/DL (<150)
--- NOTE | 2021-01-05 08:34 | REP ---
INDICATION: DYSURIA- LABS FIRST COMPARISON: 11/20/2019 TECHNIQUE: Axial noncontrast images from the lung bases to the pubic symphysis with coronal and sagittal reformations. This CT examination was performed using the following dose reduction techniques: Automated exposure control, adjustment of mA and/or kv according to the patient's size, and use of iterative reconstruction technique. FINDINGS: Lung bases demonstrate chronic appearing changes and mild bronchiectasis. Visualized heart and pericardium normal. Liver, spleen, pancreas, gallbladder, left adrenal glands and kidneys are normal. Small stable right adrenal adenoma again noted. The ascending colon is collapsed and there appears to be a small amount of fluid in the right pericolic gutter extending from the level of the liver into the pelvis which also may represent a new irregular collapsed appearance to the colon and cecum. The terminal ileum appears normal, but the appendix is not definitively identified. The remainder of the small and large bowel is grossly unremarkable and without obstruction or acute inflammatory process. Pelvis demonstrates normal bladder and evidence for prior hysterectomy. No pelvic fluid or significant ascites. No free air. No adenopathy. No focal inflammatory stranding. Abdominal aorta without aneurysm. Musculoskeletal structures are intact and without acute osseous abnormality. IMPRESSION: 1. Collapsed appearance to the ascending colon and a small amount of adjacent free fluid cannot definitively be excluded or differentiated from the collapsed colon itself. Correlation with physical examination is recommended. If necessary, repeat CT examination with appropriate oral contrast administration may be warranted. 2. Otherwise relatively normal noncontrast evaluation without further acute abdominopelvic pathology appreciated. <Electronically signed by Antwon Edward > 01/05/21 [id number]
[2021-01-05 10:42] LABS: VITAMIN B12 LEVEL 243 PG/ML (247-911)
== END ==
LOC: M RAD 07:07
PROVIDERS: ATTEND Nurse Practitioner Adult Health
DX: Z00.00 Encounter for general adult medical examination without abnormal findings (principal); Z13.29 Encounter for screening for other suspected endocrine disorder; R30.0 Dysuria; E78.00 Pure hypercholesterolemia, unspecified; E53.8 Deficiency of other specified B group vitamins

== ENCOUNTER → 2021-01-28 | Outpatient (REF) | LOC: M LABSMTC 10:55 | PROVIDERS: ATTEND Pediatrics | DX: Z11.52 Encounter for screening for COVID-19 (principal) ==

== ENCOUNTER → 2021-06-22 | Outpatient (CLI) | payer BC ==
[~2021-06-22] MED LIST changes: +OMEP40CA4 PO; -OMEP40CA97 PO
[2021-06-22 11:41] LABS: ALBUMIN 4.1 GM/DL (3.2-5.2); ALT/SGPT 24 U/L (12-78); BILIRUBIN,TOTAL 0.6 MG/DL (0.2-1.0); BLOOD UREA NITROGEN 10 MG/DL (7-18); CALCIUM LEVEL 9.6 MG/DL (8.5-10.1); CARBON DIOXIDE LEVEL 28 MEQ/L (21-32); CHLORIDE LEVEL 104 MEQ/L (98-107); CHOLESTEROL LEVEL 237 MG/DL (<200); CHOLESTEROL RISK RATIO 3.038 (<5); CREATININE FOR GFR 0.62 MG/DL (0.55-1.30); GLOMERULAR FILTRATION RATE > 60.0 (>51); GLUCOSE, FASTING 91 MG/DL (70-100); HDL CHOLESTEROL 78 MG/DL (>40); LDL CHOLESTEROL 142 MG/DL (<100); NON-HDL-C 159 MG/DL; POTASSIUM SERUM 5.1 MEQ/L (3.5-5.1); SODIUM LEVEL 138 MEQ/L (136-145); TOTAL 25(OH) VITAMIN D 40.9 NG/ML (30.0-100.0); TOTAL PROTEIN 7.1 GM/DL (6.4-8.2); TRIGLYCERIDES LEVEL 87 MG/DL (<150); VITAMIN B12 LEVEL 415 PG/ML (247-911)
== END ==
LOC: M PLALAB 08:13
PROVIDERS: ATTEND Nurse Practitioner Adult Health
DX: E55.9 Vitamin D deficiency, unspecified (principal)

== ENCOUNTER → 2021-09-07 | Outpatient (REF) ==
[2021-09-07 10:41] LABS: RSV AMPLIFICATION NEGATIVE (NEGATIVE)
== END ==
LOC: M EMP 08:43
PROVIDERS: ATTEND Family Medicine
DX: Z20.822 Contact with and (suspected) exposure to COVID-19 (principal)

== ENCOUNTER → 2021-11-02 | Outpatient (REF) ==
[2021-11-02 12:27] LABS: RSV AMPLIFICATION NEGATIVE (NEGATIVE)
== END ==
LOC: M EMP 07:57
PROVIDERS: ATTEND Family Medicine
DX: Z20.822 Contact with and (suspected) exposure to COVID-19 (principal)

== ENCOUNTER → 2021-11-15 | Outpatient (REF) ==
[2021-11-15 09:33] LABS: RSV AMPLIFICATION NEGATIVE (NEGATIVE)
== END ==
LOC: M EMP 08:19
PROVIDERS: ATTEND Family Medicine
DX: Z20.822 Contact with and (suspected) exposure to COVID-19 (principal)

== ENCOUNTER → 2022-03-30 | Outpatient (REF) ==
[~2022-03-30] MED LIST changes: -CEFD1CAP8 PO; +CEFD300C41 PO
[2022-03-30 11:59] LABS: RSV AMPLIFICATION NEGATIVE (NEGATIVE)
== END ==
LOC: M EMP 11:07
PROVIDERS: ATTEND Family Medicine
DX: Z20.828 Contact with and (suspected) exposure to other viral communicable diseases (principal); Z11.59 Encounter for screening for other viral diseases

== ENCOUNTER → 2022-06-21 | Outpatient (CLI) | payer BC | LOC: M WHC 08:07 | PROVIDERS: ATTEND Nurse Practitioner Adult Health | DX: Z12.31 Encounter for screening mammogram for malignant neoplasm of breast (principal); Z53.9 Procedure and treatment not carried out, unspecified reason ==

== ENCOUNTER → 2022-07-24 | Outpatient (CLI) | payer BC | LOC: M WHC 07:09 | PROVIDERS: ATTEND Nurse Practitioner Adult Health | DX: Z12.31 Encounter for screening mammogram for malignant neoplasm of breast (principal) ==

== ENCOUNTER → 2022-09-06 | Outpatient (CLI) | payer BC ==
[~2022-09-06] MED LIST changes: +VITA100093 PO
== END ==
LOC: M LABSMTC 10:15
PROVIDERS: ATTEND Anesthesiology
DX: Z20.828 Contact with and (suspected) exposure to other viral communicable diseases (principal); Z11.59 Encounter for screening for other viral diseases

== ENCOUNTER 2022-09-11 11:23 | Day surgery (SDC) | payer BC ==
[~2022-09-11] VITALS: Ht 152.4 cm; Wt 65.8 kg
[~2022-09-11 11:23] MED LIST changes: +NS 1,000 ML IV ONE
[2022-09-11] MEDS ORDERED: LIDOCAINE 2% 100MG/5ML SDV (FOR ANES.) As Ordered ONE (13:18)
[2022-09-11] MEDS ORDERED: propofoL 200 MG/20 ML VIAL As Ordered ONE ×2 (13:18→13:24)
[2022-09-11 13:55] VITALS: BP 167/91
== END 2022-09-11 14:11 | disposition home or self-care (01) ==
LOC: M OPP 11:23
PROVIDERS: ATTEND Surgery
DX: Z12.11 Encounter for screening for malignant neoplasm of colon (principal); Z86.010 Personal history of colon polyps; Z80.0 Family history of malignant neoplasm of digestive organs; D12.3 Benign neoplasm of transverse colon; Z79.890 Hormone replacement therapy; Z79.899 Other long term (current) drug therapy; Z91.013 Allergy to seafood; Z91.040 Latex allergy status; Z88.8 Allergy status to other drugs, medicaments and biological substances; I10 Essential (primary) hypertension; E78.00 Pure hypercholesterolemia, unspecified; Z86.39 Personal history of other endocrine, nutritional and metabolic disease; Z86.73 Personal history of transient ischemic attack (TIA), and cerebral infarction without residual deficits; Z80.8 Family history of malignant neoplasm of other organs or systems

== ENCOUNTER → 2023-07-25 | Outpatient (CLI) | payer BC ==
[~2023-07-25] MED LIST changes: -NS 1,000 ML IV ONE
== END ==
LOC: M WHC 07:14
PROVIDERS: ATTEND Nurse Practitioner Adult Health
DX: R22.1 Localized swelling, mass and lump, neck (principal)

== ENCOUNTER → 2023-07-25 | Outpatient (CLI) | payer BC ==
[2023-07-25 10:47] LABS: HEMATOCRIT 41.7 % (36.0-47.0); HEMOGLOBIN 14.9 g/dl (12.0-15.5); MEAN CORPUSCULAR HEMOGLOBIN 31.2 pg (27.0-33.0); MEAN CORPUSCULAR HGB CONC 35.7 g/dl (32.0-36.5); MEAN CORPUSCULAR VOLUME 87.4 fl (80.0-96.0); PLATELET COUNT, AUTOMATED 362 10^3/uL (150-450); RED BLOOD COUNT 4.77 10^6/uL (4.00-5.40); WHITE BLOOD COUNT 4.4 10^3/uL (4.0-10.0)
[2023-07-25 10:59] LABS: ALBUMIN 3.8 G/DL (3.2-5.2); ALKALINE PHOSPHATASE 72 U/L (46-116); ALT/SGPT 16 U/L (7.0-40); AST/SGOT 10 U/L (<34); BILIRUBIN,TOTAL 0.8 MG/DL (0.3-1.2); BLOOD UREA NITROGEN 7 MG/DL (9-23); CALCIUM LEVEL 9.4 MG/DL (8.3-10.6); CARBON DIOXIDE LEVEL 29 MMOL/L (20-31); CHLORIDE LEVEL 93 MMOL/L (98-107); CHOLESTEROL LEVEL 179 MG/DL (<200); CHOLESTEROL RISK RATIO 2.18 (<5); GLOMERULAR FILTRATION RATE > 60.0 (>45); GLUCOSE, FASTING 96 MG/DL (74-106); HDL CHOLESTEROL 81.9 MG/DL (>40); LDL CHOLESTEROL 84.7 MG/DL (<100); NON-HDL-C 97.1 MG/DL; SODIUM LEVEL 128 MMOL/L (136-145); THYROID STIMULATING HORMONE 1.021 uIU/ML (0.55-4.78); TOTAL 25(OH) VITAMIN D 45.3 NG/ML (20.0-100.0); TOTAL PROTEIN 6.5 G/DL (5.7-8.2); TRIGLYCERIDES LEVEL 62 MG/DL (<150)
== END ==
LOC: M PLALAB 07:17
PROVIDERS: ATTEND Nurse Practitioner Adult Health
DX: Z00.00 Encounter for general adult medical examination without abnormal findings (principal); E78.2 Mixed hyperlipidemia; Z13.29 Encounter for screening for other suspected endocrine disorder

== ENCOUNTER → 2024-06-09 | Outpatient (CLI) | payer BC ==
[~2024-06-09] MED LIST changes: +CEFD1CAP9 PO; -CEFD300C41 PO
== END ==
LOC: M PLALAB 09:47 → M PLAIMG 09:47
PROVIDERS: ATTEND Nurse Practitioner Adult Health
DX: R09.89 Other specified symptoms and signs involving the circulatory and respiratory systems (principal)

== ENCOUNTER → 2024-07-15 | Outpatient (CLI) | payer BC | LOC: M CARPUL 07:37 | PROVIDERS: ATTEND Nurse Practitioner Adult Health | DX: R05.3 Chronic cough (principal) ==

== ENCOUNTER → 2024-08-06 | Outpatient (CLI) | payer BC ==
[2024-08-06 10:52] LABS: HEMATOCRIT 41.9 % (36.0-47.0); HEMOGLOBIN 14.1 g/dl (12.0-15.5); MEAN CORPUSCULAR HEMOGLOBIN 31.1 pg (27.0-33.0); MEAN CORPUSCULAR HGB CONC 33.7 g/dl (32.0-36.5); MEAN CORPUSCULAR VOLUME 92.5 fl (80.0-96.0); PLATELET COUNT, AUTOMATED 377 10^3/uL (150-450); RED BLOOD COUNT 4.53 10^6/uL (4.00-5.40); WHITE BLOOD COUNT 4.5 10^3/uL (4.0-10.0)
[2024-08-06 11:28] LABS: ALBUMIN 3.7 G/DL (3.2-5.2); ALKALINE PHOSPHATASE 76 U/L (46-116); ALT/SGPT 13 U/L (7.0-40); AST/SGOT < 8 U/L (<34); BILIRUBIN,TOTAL 0.6 MG/DL (0.3-1.2); BLOOD UREA NITROGEN 12 MG/DL (9-23); CARBON DIOXIDE LEVEL 26 MMOL/L (20-31); CHLORIDE LEVEL 105 MMOL/L (98-107); CHOLESTEROL LEVEL 210 MG/DL (<200); CHOLESTEROL RISK RATIO 2.57 (<5); CREATININE FOR GFR 0.64 MG/DL (0.55-1.30); GLOMERULAR FILTRATION RATE > 60.0 (>45); GLUCOSE, FASTING 84 MG/DL (74-106); HDL CHOLESTEROL 81.4 MG/DL (>40); LDL CHOLESTEROL 110.6 MG/DL (<100); NON-HDL-C 128.6 MG/DL; POTASSIUM SERUM 4.3 MMOL/L (3.5-5.1); SODIUM LEVEL 136 MMOL/L (136-145); THYROID STIMULATING HORMONE 1.986 uIU/ML (0.55-4.78); TOTAL PROTEIN 6.2 G/DL (5.7-8.2); TRIGLYCERIDES LEVEL 90 MG/DL (<150)
[2024-08-06 11:29] LABS: TOTAL 25(OH) VITAMIN D 30.3 NG/ML (20.0-100.0); VITAMIN B12 LEVEL 308 PG/ML (211-911)
== END ==
LOC: M PLALAB 08:26
PROVIDERS: ATTEND Nurse Practitioner Adult Health
DX: Z00.00 Encounter for general adult medical examination without abnormal findings (principal); E78.2 Mixed hyperlipidemia; E55.9 Vitamin D deficiency, unspecified; E53.8 Deficiency of other specified B group vitamins; Z13.29 Encounter for screening for other suspected endocrine disorder

== ENCOUNTER → 2024-08-12 | Outpatient (CLI) | payer BC | LOC: M WHC 06:46 | PROVIDERS: ATTEND Nurse Practitioner Adult Health | DX: Z12.31 Encounter for screening mammogram for malignant neoplasm of breast (principal) ==

== ENCOUNTER → 2024-09-09 | Outpatient (CLI) | payer BC ==
[~2024-09-09] MED LIST changes: +METHACHOLINE KIT (6 VIAL.NEB PREMIX) INH ONE
== END ==
LOC: M CARPUL 07:40
PROVIDERS: ATTEND Nurse Practitioner Adult Health
DX: R05.3 Chronic cough (principal)
CPT/HCPCS: 94070; J7674

== ENCOUNTER → 2024-10-12 | Outpatient (REF) | payer BC ==
[~2024-10-12] MED LIST changes: -METHACHOLINE KIT (6 VIAL.NEB PREMIX) INH ONE
== END ==
LOC: M SFHCDERM 18:07
PROVIDERS: ATTEND Physician Assistant
DX: L60.8 Other nail disorders (principal)

== ENCOUNTER → 2025-03-26 | Outpatient (REF) | payer BC | LOC: M LAB REF 12:27 | PROVIDERS: ATTEND Nurse Practitioner Family | DX: R30.0 Dysuria (principal) ==

== ENCOUNTER → 2025-03-31 | Outpatient (CLI) | payer BC ==
[2025-03-31 12:53] LABS: ALBUMIN 3.6 G/DL (3.2-5.2); ALKALINE PHOSPHATASE 82 U/L (35-104); ALT/SGPT 14 U/L (7.0-40); AST/SGOT 13 U/L (<34); BILIRUBIN,TOTAL 0.6 MG/DL (0.3-1.2); BLOOD UREA NITROGEN 9 MG/DL (9-23); CARBON DIOXIDE LEVEL 27 MMOL/L (20-31); CHLORIDE LEVEL 105 MMOL/L (98-107); CREATININE FOR GFR 0.64 MG/DL (0.55-1.30); GLOMERULAR FILTRATION RATE > 90.0 (>45); GLUCOSE, FASTING 79 MG/DL (74-106); POTASSIUM SERUM 5.1 MMOL/L (3.5-5.1); SODIUM LEVEL 140 MMOL/L (136-145); TOTAL PROTEIN 6.3 G/DL (5.7-8.2)
== END ==
LOC: M PLALAB 09:00
PROVIDERS: ATTEND Nurse Practitioner Adult Health
DX: I10 Essential (primary) hypertension (principal)

== ENCOUNTER → 2025-09-13 | Outpatient (CLI) | payer BC | LOC: M WHC 12:16 | PROVIDERS: ATTEND Nurse Practitioner Adult Health | DX: Z12.31 Encounter for screening mammogram for malignant neoplasm of breast (principal) ==